=== PATIENT | female | born 1940 | race Caucasian/White ===

== ENCOUNTER 2022-06-17 09:53 | Emergency (ER) | payer MEDICARE, BC ==
[~2022-06-17] VITALS: Ht 165.1 cm; Wt 79.5 kg
[2022-06-17 10:31] VITALS: BP 167/76
== END 2022-06-17 12:01 | disposition left against medical advice (07) ==
LOC: ER 09:53
DX: R19.7 Diarrhea, unspecified (principal); R10.30 Lower abdominal pain, unspecified; Z53.21 Procedure and treatment not carried out due to patient leaving prior to being seen by health care provider